=== PATIENT | female | born 1990 | race Hispanic/Latino ===

== ENCOUNTER 2016-10-05 09:43 | Emergency (ER) | payer OTHER ==
[2016-10-05 10:31] VITALS: BP 121/78; PULSE 77; RESP 18; TEMP 98.7; O2SAT 100
[2016-10-05 10:53] LABS: BASO % 0.7 % (0.0-2.0); EOS % 0.8 % (0.0-4.0); LYMPH # 1.2 K/uL (1.0-4.3); LYMPH % 25.5 % (20.0-40.0); MEAN CORPUSCULAR HEMOGLOBIN 21.9 pg (27.0-31.0); MEAN CORPUSCULAR HGB CONC 31.4 g/dL (33.0-37.0); MEAN PLATELET VOLUME 11.1 fl (7.2-11.7); MONO # 0.4 K/uL (0.0-0.8); MONO % 7.5 % (0.0-10.0); NEUT # 3.2 K/uL (1.8-7.0); NEUT % 65.5 % (50.0-75.0); NRBC % 0.4 % (0.0-0.0); RED CELL DISTRIBUTION WIDTH 15.1 % (11.5-14.5); WHITE BLOOD COUNT 4.8 K/uL (4.8-10.8)
[2016-10-05 11:04] LABS: RBC URINE 1 /hpf (0-3); URINE BACTERIA RARE (<OCC); URINE BILIRUBIN NEGATIVE (NEGATIVE); URINE BLOOD NEGATIVE (NEGATIVE); URINE COLOR YELLOW (YELLOW); URINE GLUCOSE (UA) NEG (Normal); URINE KETONE NEGATIVE (NEGATIVE); URINE LEUKOCYTE ESTERASE NEG Leu/uL (Negative); URINE PROTEIN 30 mg/dL (NEGATIVE); URINE UROBILINOGEN 0.2-1.0 mg/dL (0.2-1.0); WBC URINE 1 /hpf (0-5)
[2016-10-05 11:12] LABS: ALB/GLOB RATIO 1.5 (1.0-2.1); ALKALINE PHOSPHATASE 43 U/L (38-126); ALT/SGPT 23 U/L (9-52); AST/SGOT 18 U/L (14-36); BILIRUBIN,TOTAL 0.7 mg/dl (0.2-1.3); BLOOD UREA NITROGEN 12 mg/dl (7-17); CALCIUM 8.9 mg/dL (8.4-10.2); CARBON DIOXIDE 25 mmol/L (22-30); CHLORIDE 108 mmol/L (98-107); GFR AFRICAN-AMERICAN > 60; GLUCOSE,RANDOM 89 mg/dL (65-105); SODIUM 144 mmol/l (132-148); TOTAL PROTEIN 6.5 G/DL (6.3-8.2)
--- NOTE | 2016-10-05 11:39 | ED PDOC ---
HPI: Abdomen Time Seen by Provider: 10/05/16 10:10 Chief Complaint (Nursing): Abdominal Pain Chief Complaint (Provider): Abdominal Pain History Per: Patient History/Exam Limitations: no limitations Onset/Duration Of Symptoms: Days (21x), Other (comes and goes) Severity: Moderate Location Of Pain/Discomfort: LLQ Associated Symptoms: Diarrhea (non bloody). denies: Fever Additional Complaint(s): 26 year old female patient presents to the ED with complaints of abdominal swelling, and lower left quadrant abdominal pain that has been coming and going for the past 3x weeks. She reports that she has been having diarrhea for the past 1x week. She denies having a fever and any other medical complaints. PMD: Patient does not recall. Past Medical History Reviewed: Historical Data, Nursing Documentation, Vital Signs Vital Signs: Last Vital Signs Temp 98.7 F 10/05/16 10:12 Pulse 77 10/05/16 10:12 Resp 18 10/05/16 10:12 BP 121/78 10/05/16 10:12 Pulse Ox 100 10/05/16 14:04 - Medical History PMH: No Chronic Diseases - Surgical History Surgical History: No Surg Hx - Family History Family History: States: No Known Family Hx - Social History Alcohol: None Drugs: Cannabis - Allergies Allergies/Adverse Reactions: Allergies Allergy/AdvReac Type Severity Reaction Status Date / Time dairy Allergy VOMITING Uncoded 10/05/16 10:11 Review of Systems ROS Statement: Except As Marked, All Systems Reviewed And Found Negative Constitutional: Negative for: Fever Gastrointestinal: Positive for: Abdominal Pain (lower left quadrant), Diarrhea ( non bloody). Negative for: Hematochezia Physical Exam - Reviewed Nursing Documentation Reviewed: Yes Vital Signs Reviewed: Yes - Physical Exam Appears: Positive for: Well, Non-toxic, No Acute Distress Head Exam: Positive for: ATRAUMATIC, NORMOCEPHALIC Skin: Positive for: Normal Color, Warm, Dry Cardiovascular/Chest: Positive for: Regular Rate, Rhythm, Chest Non Tender Respiratory: Positive for: Normal Breath Sounds. Negative for: Respiratory Distress Gastrointestinal/Abdominal: Positive for: Tenderness (mild suprapubic tenderness ) Extremity: Positive for: Normal ROM Neurologic/Psych: Positive for: Alert, Oriented (3x) - Laboratory Results Result Diagrams: 10/05/16 10:40 10/05/16 10:40 - ECG O2 Sat by Pulse Oximetry: 100 (RA) Pulse Ox Interpretation: Normal Medical Decision Making Medical Decision Makin:10 Initial impression: 26 year old female with complaints of abdominal pain Initial plan: * US pelvis/transvaginal * CMP * udip * CBC with differential * urinalysis * reevaluation US pelvic TV Impression: normal ultrasound Scribe Attestation: Documented by Rose Valdovinos, acting as a scribe for Gretchen Simental MD. Provider Scribe Attestation: All medical record entries made by the Scribe were at my direction and personally dictated by me. I have reviewed the chart and agree that the record accurately reflects my personal performance of the history, physical exam, medical decision making, and the department course for this patient. I have also personally directed, reviewed, and agree with the discharge instructions and disposition. Disposition - Clinical Impression Clinical Impression: Abdominal pain, Diarrhea - Patient ED Disposition Is Patient to be Admitted: No Doctor Will See Patient In The: Office Counseled Patient/Family Regarding: Studies Performed, Diagnosis, Need For Followup - Disposition Referrals: [facility] [Outside] Ross Oseguera MD [Staff Provider] - Disposition: Routine/Home Disposition Time: 14:04 Condition: GOOD Additional Instructions: Follow up with your PCP in 2-3 days. Instructions: Acute Diarrhea (ED)
[2016-10-05 12:54] LABS: MEAN CELL VOLUME 69.7 fl (81.0-99.0)
--- NOTE | 2016-10-05 13:54 | US ---
PROCEDURE: HISTORY: left pelvic pain COMPARISON: TECHNIQUE: FINDINGS: The uterus measures 6.9 x 2.8 x 4.0 centimeters. The endometrium measures 3 millimeters. The right ovary measures 2.4 x 1.7 x 2.5 centimeters. The left ovary measures 2.3 x 1.2 x 2.1 centimeters. There is free fluid noted in the cul-de-sac. IMPRESSION: Normal pelvic ultrasound.
== END 2016-10-05 14:30 | disposition home or self-care (01) ==
LOC: H.ER 09:43
DX: R10.9 Unspecified abdominal pain (principal); R19.7 Diarrhea, unspecified